=== PATIENT | male | born 1970 | race Caucasian/White ===

== ENCOUNTER 2017-10-06 22:37 | Emergency (ER) | payer OTHER ==
[~2017-10-06] VITALS: Ht 177.8 cm; Wt 70.3 kg
[2017-10-06] MEDS ORDERED: WELLBUTRIN SR150 MG (22:53)
[2017-10-06] MEDS ORDERED: CHLORDIAZEPOXID10 MG (22:55)
[2017-10-06] MEDS ORDERED: CHLORDIAZEPOXID25 M1 PO (23:01)
[2017-10-06 23:22] LABS: CALCIUM 8.2 mg/dL (8.5-10.1); POTASSIUM 3.6 mmol/L (3.5-5.1)
[2017-10-06 23:27] LABS: ALBUMIN 3.6 g/dL (3.4-5.0); TOTAL BILIRUBIN 0.3 mg/dL (<0.1-1.0); TOTAL PROTEIN 7.5 g/dL (6.4-8.2)
[2017-10-06] MEDS ORDERED: WELLBUTRIN XL300 MG PO (23:51)
[2017-10-06] MEDS ORDERED: WELLBUTRIN SR150 MG PO (23:51)
[2017-10-06 23:59] VITALS: BP 125/81
== END 2017-10-07 00:01 | disposition still patient (30) ==
LOC: M.ERS 22:37
PROVIDERS: Emergency Medicine Emergency Medical Services
DX: Z76.0 Encounter for issue of repeat prescription (principal); F20.9 Schizophrenia, unspecified; F32.9 Major depressive disorder, single episode, unspecified; F10.99 Alcohol use, unspecified with unspecified alcohol-induced disorder; Z86.19 Personal history of other infectious and parasitic diseases; Z88.0 Allergy status to penicillin

== ENCOUNTER 2017-11-20 20:07 | Emergency (ER) | payer OTHER ==
[~2017-11-20] VITALS: Ht 190.5 cm; Wt 83.9 kg
[~2017-11-20 20:07] MED LIST: CHLORDIAZEPOXID10 MG; CHLORDIAZEPOXID25 M1 PO; WELLBUTRIN SR150 MG; WELLBUTRIN SR150 MG PO; WELLBUTRIN XL300 MG PO
[2017-11-20] MEDS ORDERED: HYDROCODONE-AP1 EAC6 PO (21:36)
[2017-11-20 21:54] VITALS: BP 115/80
== END 2017-11-20 21:56 ==
LOC: M.ERS 20:07
DX: S72.114A Nondisplaced fracture of greater trochanter of right femur, initial encounter for closed fracture (principal); F20.9 Schizophrenia, unspecified; F32.9 Major depressive disorder, single episode, unspecified; Z88.0 Allergy status to penicillin; V03.90XA Pedestrian on foot injured in collision with car, pick-up truck or van, unspecified whether traffic or nontraffic accident, initial encounter; Y93.89 Activity, other specified; Y92.89 Other specified places as the place of occurrence of the external cause; Y99.8 Other external cause status

== ENCOUNTER 2018-01-15 12:44 | Emergency (ER) | payer OTHER ==
[~2018-01-15] VITALS: Ht 190.5 cm; Wt 77.1 kg
[~2018-01-15 12:44] MED LIST changes: +HYDROCODONE-AP1 EAC6 PO
[2018-01-15 12:45] VITALS: BP 137/89
== END 2018-01-15 13:02 | disposition home or self-care (01) ==
LOC: M.ERS 12:44
DX: M54.9 Dorsalgia, unspecified (principal); Z53.21 Procedure and treatment not carried out due to patient leaving prior to being seen by health care provider; F20.9 Schizophrenia, unspecified; F32.9 Major depressive disorder, single episode, unspecified; F17.200 Nicotine dependence, unspecified, uncomplicated; Z88.0 Allergy status to penicillin

== ENCOUNTER 2018-04-16 16:45 | Emergency (ER) | payer OTHER ==
[~2018-04-16] VITALS: Ht 190.5 cm; Wt 85.4 kg
[2018-04-16] MEDS ORDERED: NEURONTIN600 MG PO (17:02)
[2018-04-16] MEDS ORDERED: KEFLEX500 M1 PO (17:07)
[2018-04-16] MEDS ORDERED: NEURONTIN 300300 M1 PO (17:07)
[2018-04-16 17:19] VITALS: BP 135/84
== END 2018-04-16 17:20 | disposition home or self-care (01) ==
LOC: M.ERS 16:45
DX: J34.0 Abscess, furuncle and carbuncle of nose (principal); Z76.0 Encounter for issue of repeat prescription; F32.9 Major depressive disorder, single episode, unspecified; F20.9 Schizophrenia, unspecified; Z86.19 Personal history of other infectious and parasitic diseases; Z88.0 Allergy status to penicillin

== ENCOUNTER 2018-08-16 20:35 | Emergency (ER) | payer OTHER ==
[~2018-08-16] VITALS: Ht 190.5 cm; Wt 68.0 kg
[~2018-08-16 20:35] MED LIST changes: +KEFLEX500 M1 PO; +NEURONTIN 300300 M1 PO; +NEURONTIN600 MG PO
[2018-08-16] MEDS ORDERED: KEFLEX500 M1 PO (20:48)
[2018-08-16 21:00] VITALS: BP 128/70
== END 2018-08-16 21:14 | disposition home or self-care (01) ==
LOC: M.ERS 20:35
DX: H92.01 Otalgia, right ear (principal); F32.9 Major depressive disorder, single episode, unspecified; F20.9 Schizophrenia, unspecified; Z88.0 Allergy status to penicillin; Z86.19 Personal history of other infectious and parasitic diseases